=== PATIENT | female | born 1955 | race American Indian/Alaskan Native ===

== ENCOUNTER 2020-01-20 09:54 | Emergency (ER) | payer MEDICARE ==
[2020-01-20 10:03] VITALS: BP 149/83
--- NOTE | 2020-01-20 10:17 | Emergency Department Report ---
ED Rash HPI - HPI Chief Complaint: Skin Rash Stated Complaint: ALLERGIC REACTION Time Seen by Provider: 01/20/20 10:05 Location: Upper Extremities, Lower Extremities Suspected Cause: Unknown Rash Symptoms: Yes Itching, No Facial Swelling, No Tongue/Oral Swelling, No Breathing Difficulties, No Choking Sensation, No Wheezing/Dyspnea, No Peeling, No Blistering, No Fever, No Lightheaded, No Malaise, No Myalgias Severity: mild Other History: 64 YO AA FEMALE COMES TO ER WITH RASH ON BLE AND BUE. THE RASH IS BELOW KNEE AND ELBOW. SHE HAS HAD IT FOR OVER 1 M. HER PCP CALLED HER IN [facility]. BUT SHE DID NOT SEE THE RASH. PT HAS DM. CONCERN FOR DIABETIC RELATED RASH. ED Review of Systems ROS: Stated complaint: ALLERGIC REACTION Other details as noted in HPI Comment: All other systems reviewed and negative ED Past Medical Hx - Past Medical History Previous Medical History?: Yes Hx Hypertension: Yes Hx CVA: Yes (2005) Hx Diabetes: Yes Hx Renal Disease: Yes (Weakness in the kidney) - Surgical History Past Surgical History?: Yes Additional Surgical History: hysterectomy - Family History Family history: no significant - Social History Smoking Status: Never Smoker Substance Use Type: None - Medications Home Medications: Home Medications Medication Instructions Recorded Confirmed Last Taken Type Gabapentin 300 mg PO BID 08/09/16 08/09/16 Unknown History traMADoL [Ultram 50 MG tab] 50 mg PO TID PRN 08/09/16 08/09/16 Unknown History HYDROcodone/APAP 5-325 [[place] 1 each PO TID PRN #30 tablet 08/12/16 Unknown Rx 5-325 mg TAB] Pantoprazole [Protonix TAB] 40 mg PO BID #60 tablet 08/12/16 Unknown Rx Simvastatin [Zocor TAB] 40 mg PO QHS #30 08/12/16 08/09/16 08/08/16 Rx amLODIPine 5 mg PO DAILY #30 tablet 08/12/16 Unknown Rx cloNIDine-TTS PATCH [Catapres-Tts 0.2 mg TD Sa #30 patch 08/12/16 Unknown Rx 0.2mg Patch] lisinopriL [Zestril TAB] 40 mg PO QDAY #30 tablet 08/12/16 Unknown Rx predniSONE [Deltasone] 20 mg PO DAILY #5 tablet 01/20/20 Unknown Rx Rash Exam - Exam General: Vital signs noted. No distress. Alert and acting appropriately. HEENT: No Periorbital Edema, No Conjuctival Injection, No Chemosis, No Perioral Edema, No Tongue Edema, No Uvular Edema, No Compromised Airway, No Drooling Lungs: Yes Good Air Exchange (Normal Breath Sounds), No Wheezes, No Ronchi, No Stridor, No Cough, No Labored Respirations, No Retractions, No Use of Accessory Muscles, No Other Abnormal Lung Sounds Heart: Yes Regular, No Murmur Skin: Yes Other (OLD APPEARING MACULAR RASH WITH NO DRAINAGE. NOT OPEN. NO SWELLING. POS ITCHING. ABC INTACT. NOT ON TRUNK. NO ONE IN HOME WITH SAME. NO FEVER OR CHILLS. NO SOB OR CP. DOES SEE PCP AND RELIABLE FOR FOLLOW UP. ), No Urticarial Rash Other: Positive: Abdomen Normal, Neurologic Normal, Musculoskeletal Normal ED Course Vital Signs 01/20/20 10:01 Temperature 98 F Pulse Rate 89 Respiratory 20 Rate Blood Pressure 149/83 [Right] O2 Sat by Pulse 98 Oximetry ED Medical Decision Making - Medical Decision Making NO ONE IN HOME WITH THE SAME HAS NOT WORKED IN YARD OR PULLED WEEDS ITCHING NO RASH ON TRUNK NO SYSTEMIC SYMPTOMS NO S/S INFECTION VSS AMBULATORY NON TOXIC AND NON ILL APPEARING MACULAR RASH WITH NO DRAINAGE. DC HOME WITH PREDNISONE X 5 DAYS- EDUCATED ON SIDE EFFECTS/DM PT TO FOLLOW UP WITH DERM IF THE RASH PERSISTS OR RETURNS SHE VERBALIZES UNDERSTANDING. Vital Signs 01/20/20 10:01 Temperature 98 F Pulse Rate 89 Respiratory 20 Rate Blood Pressure 149/83 [Right] O2 Sat by Pulse 98 Oximetry - Differential Diagnosis SCABIES/BEDBUGS; DIABETIC ULCER; BENIGN RASH Critical care attestation.: If time is entered above; I have spent that time in minutes in the direct care of this critically ill patient, excluding procedure time. ED Disposition Clinical Impression: Rash Disposition: DC-01 TO HOME OR SELFCARE Is pt being admited?: No Does the pt Need Aspirin: No Condition: Stable Additional Instructions: MED ORDERED TODAY FOLLOW UP WITH PCP FOLLOW UP WITH SKIN MD REFERRAL BELOW MONITOR BLOOD SUGAR IT MAY INCREASE WITH THIS MEDICATION DIABETIC DIET OVER THE COUNTER BENADRYL BY MOUTH FOR ITCHING Prescriptions: predniSONE [Deltasone] 20 mg PO DAILY #5 tablet Referrals: SHANTAL MOSCOSO MD [Staff Physician] - 3-5 Days NOEMI CAGE MD [Referring] - 3-5 Days Time of Disposition: 10:18
== END 2020-01-20 10:58 | disposition home or self-care (01) ==
LOC: ED 09:54
DX: R21 Rash and other nonspecific skin eruption (principal); E11.9 Type 2 diabetes mellitus without complications; I10 Essential (primary) hypertension; Z90.710 Acquired absence of both cervix and uterus; Z86.73 Personal history of transient ischemic attack (TIA), and cerebral infarction without residual deficits; Z79.899 Other long term (current) drug therapy
CPT/HCPCS: 99282

== ENCOUNTER 2021-10-17 12:34 | Emergency (ER) | payer MEDICARE ==
[2021-10-17 15:07] VITALS: BP 146/81
== END 2021-10-17 15:05 | disposition left against medical advice (07) ==
LOC: ED 12:34
DX: M25.552 Pain in left hip (principal); Z53.21 Procedure and treatment not carried out due to patient leaving prior to being seen by health care provider